=== PATIENT | male | born 1940 | race Caucasian/White ===

== ENCOUNTER 2025-07-09 13:25 | Emergency (ER) | payer MEDICARE, OTHER ==
[~2025-07-09] VITALS: Ht 175.3 cm; Wt 81.5 kg
[2025-07-09 13:50] VITALS: BP 170/70; PULSE 75; RESP 18; O2SAT 97
[2025-07-09] MEDS ORDERED: HYDR-3686 PO (14:16)
--- NOTE | 2025-07-09 14:17 | Physician Documentation ---
History of Present Illness ~ Chief Complaint: Anxiety Stated Complaint: PANIC ATTACK Time Seen by MD: 14:04 [facility] 84-year-old very pleasant male presents to the ED with a complaint of panic attacks over the last week and a half. He states that he had similar takes 20 years ago and just work through them and they went away. When asked if he has any increased life stressors he states that he has been having some financial troubles any lives alone. Denies any HI or SI. He also reports having difficulty sleeping. Denies excessive alcohol use he states he only has a small amount prior to dinner. On a daily basis Day of Onset: Jul 09, 2025 Medication Reconciliation Allergies: Coded Allergies: No Known Allergies (Unverified , 07/09/25) Review of Systems All Other Systems at this time: Reviewed and Negative ROS As stated above in the HPI, otherwise all systems are reviewed and negative. Physical Exam Vital Signs: Temperature: 97.5, Source: Temporal, Heart Rate: 75, Respiratory Rate: 18, BP: 170/70, Pulse Oximetry: 97, Weight: 81.450 Oxygen Flow Rate: 0 Physical Exam General: Alert, no apparent distress. Respiratory: Lungs clear, no respiratory distress. Neurologic: Oriented x4. Psychiatric: Normal mood and affect. Skin: Normal color, warm and dry. No edema, no ecchymosis. Progress Results/Orders Results/Orders Vital Signs 07/09/25 13:50 Temp 97.5 Pulse 75 Resp 18 B/P (MAP) 170/70 Pulse Ox 97 O2 Flow Rate 0 Medical Decision Making Findings Does not present with any signs of acute psychosis or severe agitation of any form. He is very appropriate throughout my interview. Discussed with him starting him on hydroxyzine as a conservative measure to help with sleep and panic attacks. He was agreeable to this. He adds that he does have in outpatient [facility] provider which he can follow up with Differential Dx:Considerations: Include: Alcohol abuse, Anxiety, Bipolar disorder, Conversion disorder, Depression, Encephaloathy, Homicidal, Panic disorder, Personality disorder, Schizophrenia, Substance abuse, Suicidal, Other Departure Disposition: 01 HOME / SELF CARE / HOMELESS Impression: Primary Impression: Anxiety Additional Impression: Panic attack Condition: Stable Discharge Instructions: Panic Attack Referrals: NO PRIMARY CARE PROVIDER (PCP) Prescriptions Hydroxyzine Hcl* (Atarax*) 25 Mg Tablet 2 TAB PO HS for anxiety for 30 Days, #60 TAB Prov: SAMMY BOSCH NP 07/09/25 Signature Scribe Signature: g Attestation: Scribed for Sammy Bosch [id number] Administrator by Sammy Bosch - SERGE . 07/09/25 14:16 SAMMY BOSCH NP Jul 09, 2025 14:17
[2025-07-09 14:23] VITALS: TEMP 97.5
== END 2025-07-09 14:25 | disposition home or self-care (01) ==
LOC: ER 13:27
DX: F41.0 Panic disorder [episodic paroxysmal anxiety] (principal)
CPT/HCPCS: 99283

== ENCOUNTER 2025-08-16 05:46 | Emergency (ER) | payer MEDICARE, OTHER ==
[~2025-08-16] VITALS: Ht 175.3 cm; Wt 84.2 kg
[2025-08-16 05:52] VITALS: TEMP 98.7
--- NOTE | 2025-08-16 06:19 | Physician Documentation ---
History of Present Illness General Chief Complaint: Anxiety Stated Complaint: PANIC ATTACK Time Seen by MD: 06:19 History of Present Illness Initial Comments The patient is an 85-year-old male who presents to the emergency department with the complaint of episodes of anxiety. The patient states he has episodes where he feels panicked and increased anxiety. He states most of time it wakes him up at night. Patient denies any recent illness. Patient denies any chest pain or shortness of breath with these episodes. The patient states he has been having he has a she she has for the last month. The patient states he received a prescription for Atarax and his symptoms have improved with Atarax. The patient states he has hoping to get another prescription for Atarax. Medication Reconciliation Allergies: Coded Allergies: No Known Allergies (Unverified , 07/09/25) Scheduled Hydroxyzine Hcl* (Atarax*), 2 TAB PO HS Past Medical History Past Medical History: Anxiety Review of Systems All Other Systems at this time: Reviewed and Negative Physical Exam Physical Exam Vital Signs: Temperature: 98.7, Heart Rate: 87, Respiratory Rate: 16, BP: 170/92, Pulse Oximetry: 97, Weight: 84.200 Oxygen Flow Rate: 0 Physical Exam VITALS: Reviewed and as above. GENERAL: Alert, no apparent distress. HEENT: Normocephalic, atraumatic, PERRL, EOMI, dry mucosa, no erythema RESPIRATORY: Lungs clear, normal breath sounds, no respiratory distress. CHEST: No accessory muscle use, no retractions CV: Regular rate, rhythm, no edema, no murmur, No: JVD GI: Soft, non-tender, bowels sounds present, no rebound, guarding, or rigidity BACK: No CVA tenderness, or swelling MUSCULOSKELETAL: No deformities, no edema SKIN: Warm and dry, no rash NEURO: Oriented x4, No motor or sensory deficit PSYCH: Normal mood and affect, no agitation Progress Results/Orders Results/Orders Vital Signs 08/16/25 08/16/25 08/16/25 08/16/25 05:52 07:00 08:00 09:00 Temp 98.7 Pulse 87 113 117 116 Resp 16 16 17 14 B/P (MAP) 170/92 130/90 (103) 146/94 (111) 131/92 (105) Pulse Ox 97 97 98 96 O2 Flow Rate 0 0 0 0 Medical Decision Making Additional information obtaine: old records Findings Patient with a anxiety patient states his symptoms have improved and passed with the Atarax the patient has a otherwise benign exam he is otherwise well-appearing his previous hospitalizations has been reviewed. The patient will be given a prescription for Atarax he has been advised to follow up as an outpatient. Patient's pulse oximetry was interpreted as normal and adequate. Differential Diagnosis Panic attack, anxiety, sleep apnea, Departure Disposition: HOME / SELF CARE / HOMELESS Impression: Primary Impression: Anxiety Discharge Instructions: Panic Attack Additional Instructions: Follow up with her healthcare providers soon as possible. Return for significant worsening of your symptoms. Referrals: NO PRIMARY CARE PROVIDER (PCP) Prescriptions Hydroxyzine Hcl* (Atarax*) 25 Mg Tablet 2 TAB PO HS for anxiety for 30 Days, #60 TAB 1 Refill Prov: LUZ ELENA RESTREPO MD 08/16/25 Signature Scribe Signature: no scribe Attestation: The note accurately reflects work and decisions made by me.Luz Elena Restrepo MD 08/16/25 16:29 LUZ ELENA RESTREPO MD Aug 16, 2025 06:19
[2025-08-16] MEDS ORDERED: HYDR-3686 PO (06:30)
[2025-08-16 09:00] VITALS: BP 131/92; PULSE 116; RESP 14; O2SAT 96
== END 2025-08-16 06:42 | disposition home or self-care (01) ==
LOC: ER 05:46
DX: F41.9 Anxiety disorder, unspecified (principal)
CPT/HCPCS: 99283